=== PATIENT | male | born 1970 | race Caucasian/White ===

== ENCOUNTER 2022-03-17 06:54 | Day surgery (SDC) | payer OTHER ==
[2022-03-12 10:41] VITALS: BMI 29.9
[2022-03-17] MEDS ORDERED: PROPOFOL 20 ML ONE ×2 (07:52)
[2022-03-17] MEDS ORDERED: LIDOCAINE HCL/PF 2% SDV 5ML VIAL ONE (07:52)
[2022-03-17 08:49] VITALS: TEMP 97.1
[2022-03-17 09:10] VITALS: BP 117/76; PULSE 62; RESP 20
== END 2022-03-17 09:12 | disposition home or self-care (01) ==
LOC: FASU-ENDO 06:54
PROVIDERS: ATTEND Internal Medicine Gastroenterology
PROC: 3E0H8KZ Introduction of Other Diagnostic Substance into Lower GI, Via Natural or Artificial Opening Endoscopic (ICD-10-PCS; 2022-03-17)
PROC: 0DBL8ZX Excision of Transverse Colon, Via Natural or Artificial Opening Endoscopic, Diagnostic (ICD-10-PCS; principal; 2022-03-17 08:07)
DX: Z12.11 Encounter for screening for malignant neoplasm of colon (principal); D12.2 Benign neoplasm of ascending colon; K57.30 Diverticulosis of large intestine without perforation or abscess without bleeding
CPT/HCPCS: 88305-TC